=== PATIENT | female | born 1970 | race Caucasian/White ===

== ENCOUNTER 2016-05-10 19:29 | Emergency (ER) | payer BC ==
[~2016-05-10] VITALS: Ht 167.6 cm; Wt 104.5 kg
[2016-05-10 19:33] VITALS: TEMP 98.3
[2016-05-10 21:57] VITALS: BP 127/80; PULSE 84
== END 2016-05-10 22:19 | disposition home or self-care (01) ==
LOC: COL.ER 19:29
DX: S82.61XA Displaced fracture of lateral malleolus of right fibula, initial encounter for closed fracture (principal); X50.1XXA Overexertion from prolonged static or awkward postures, initial encounter
CPT/HCPCS: J2704; J3010

== ENCOUNTER 2016-05-15 10:51 | Day surgery (SDC) | payer BC ==
[~2016-05-15] VITALS: Ht 165.1 cm; Wt 104.5 kg
[2016-05-15] MEDS ORDERED: NORCO 325 MG-7.1 TAB PO (11:55)
[2016-05-15 12:12] VITALS: BP 167/83; PULSE 86; TEMP 98.6
[2016-05-15 15:34] VITALS: BP 139/65; PULSE 100; TEMP 97.5
[2016-05-15 15:49] VITALS: BP 134/69; PULSE 92
[2016-05-15 16:04] VITALS: BP 112/78; PULSE 79
[2016-05-15 16:19] VITALS: BP 124/69; PULSE 88
== END 2016-05-15 16:45 | disposition home or self-care (01) ==
LOC: SDCO 10:51
DX: S82.61XA Displaced fracture of lateral malleolus of right fibula, initial encounter for closed fracture (principal); X50.1XXA Overexertion from prolonged static or awkward postures, initial encounter; Y92.89 Other specified places as the place of occurrence of the external cause
CPT/HCPCS: C1713; J0690; J1885; J2250; J2405; J2704; J2795; J3010; J7120

== ENCOUNTER → 2016-10-13 | Outpatient (CLI) | payer BC ==
[~2016-10-13] MED LIST: NORCO 325 MG-7.1 TAB PO
[2016-10-13 11:19] LABS: BASO % 0.4 % (0.0-2.0); EOS # 0.1 (0.0-0.7); EOS % 1.7 % (0-4.0); GRAN # 5.1 (1.4-6.5); GRAN % 66.9 % (42.2-75.2); HEMATOCRIT 41.4 % (37.0-47.0); HEMOGLOBIN 13.8 g/dl (12.5-16.0); LYMPH % 25.9 % (20.0-51.0); MEAN CELL VOLUME 87 fl (80.0-100.0); MEAN CORPUSCULAR HEMOGLOBIN 29 pg (27.0-31.0); MEAN CORPUSCULAR HGB CONC 33 g/dl (33.0-37.0); MEAN PLATELET VOLUME 8.4 fl (7.4-10.4); MONO # 0.4 (0.1-0.6); MONO % 4.7 % (1.7-9.3); PLATELET COUNT 368 K/mm3 (130-400); RED BLOOD COUNT 4.74 M/mm3 (4.10-5.30); REDCELL DISTRIBUTION WIDTH-CV 12.9 % (11.5-14.5); WHITE BLOOD COUNT 7.7 K/mm3 (4.8-10.8)
[2016-10-13 11:44] LABS: ERYTHROCYTE SEDIMENTATION RATE 13 mm/hr (0-20)
== END ==
LOC: COL.LAB 10:33
PROVIDERS: Orthopaedic Surgery
DX: S82.61XE Displaced fracture of lateral malleolus of right fibula, subsequent encounter for open fracture type I or II with routine healing (principal); Z98.1 Arthrodesis status